=== PATIENT | male | born 1980 | race Caucasian/White ===

== ENCOUNTER 2018-03-17 02:10 | Emergency (ER) | payer OTHER ==
[2018-03-17 02:30] LABS: ADD MAN DIFF? NO
[2018-03-17 02:34] LABS: WHITE BLOOD COUNT 3.9 10^3/ul (4.8-10.8)
[2018-03-17 02:34] LABS: BASOPHILS % 0.5 % (0.0-2.0); EOSINOPHILS # 0.3 10^3/ul (0.0-0.5); EOSINOPHILS % 8.2 % (0.0-7.0); HEMOGLOBIN 9.9 g/dl (14.0-18.0); LYMPHOCYTES # 1.2 10^3/ul (0.8-2.9); LYMPHOCYTES % 30.3 % (15.0-51.0); MEAN CORPUSCULAR HEMOGLOBIN 31.3 pg (29.0-33.0); MEAN CORPUSCULAR HGB CONC 34.1 g/dl (32.0-37.0); MEAN CORPUSCULAR VOLUME 91.8 fl (82.0-101.0); MEAN PLATELET VOLUME 9.3 fl (7.4-10.4); MONOCYTE # 0.4 10^3/ul (0.3-0.9); NEUTROPHILS % 51.7 % (39.0-77.0); PLATELET COUNT 161 10^3/UL (140-415); RED BLOOD COUNT 3.16 10^6/ul (4.70-6.10); RED CELL DISTRIBUTION WIDTH 13.3 % (11.5-14.5)
[2018-03-17 02:53] LABS: ALANINE AMINOTRANSFERASE 14 IU/L (13-69); ALBUMIN 4.1 g/dl (3.3-4.9); ALBUMIN/GLOBULIN RATIO 1.46; ALKALINE PHOSPHATASE 118 IU/L (42-121); ANION GAP 19 (8-16); ASPARTATE AMINO TRANSFERASE < 8 IU/L (15-46); BLOOD UREA NITROGEN 61 mg/dl (7-20); CARBON DIOXIDE 27 mmol/L (21-31); CHLORIDE 98 mmol/L (97-110); CREATININE 13.21 mg/dl (0.61-1.24); GLUCOSE 90 mg/dl (70-220); POTASSIUM 5.1 mmol/L (3.5-5.1); SODIUM 139 mmol/L (135-144); TOTAL PROTEIN 6.9 g/dl (6.1-8.1)
[2018-03-17 03:04] LABS: TROPONIN-I 0.015 ng/ml (0.000-0.120)
== END 2018-03-17 05:25 | disposition home or self-care (01) ==
LOC: E/R 02:10
DX: R07.9 Chest pain, unspecified (principal); Z87.891 Personal history of nicotine dependence
CPT/HCPCS: 36415; 71045; 80053; 84484; 85025; 93005; 99285-25